=== PATIENT | female | born 1950 | race Caucasian/White ===

== ENCOUNTER 2016-08-16 08:26 | Emergency (ER) | payer OTHER ==
[~2016-08-16] VITALS: Ht 154.9 cm; Wt 80.0 kg
[2016-08-16 08:30] VITALS: BP 140/77; PULSE 84; RESP 24; O2SAT 98
[2016-08-16 09:35] LABS: BASOPHILS % (AUTO) 0.2 % (0-3); EOSINOPHILS % (AUTO) 1.1 % (0-5); Mean Corpuscular Volume 86.8 fL (81-100); NEUTROPHILS % (AUTO) 61.2 % (40-74); Platelet Count 440 bil/L (150-400)
--- NOTE | 2016-08-16 10:22 | ED.REPORT ---
HPI-Abd Pain F 40 and Over Date of Service Aug 16, 2016 ED Provider: Gunnar Roldan DO Patient is a 66 year old female who presents to the ED after being referred by urgent care complaining of a kidney stone. Her pain has been getting increasingly worse despite taking her prescribed medications. Associated symptoms include back pain, abdominal pain, vomiting, and diarrhea. She denies fever, chills, or any other symptoms. She took hydrocodone 2 hours prior to arrival. Nursing Notes Stated Complaint: POSSIBLE KIDNEY STONES Chief Complaint: Female Abdominal Pain Nursing Notes Reviewed: Yes Allergies: Coded Allergies: cefaclor (Verified Allergy, Unknown, 08/16/16) morphine (Verified Allergy, Unknown, 08/16/16) Scheduled PRN Hydrocodone-Acetaminophen 5-325 mg (Hydrocodone-Acetaminophen 5-325 mg) 1 Each Tablet 1-2 TABLET PO QID PRN PRN For Pain General Time Seen by MD: 10:20 Chief Complaint Abdominal pain Hx Obtained From: Patient Arrived By: Walk-in Sudden in Onset?: Yes Onset Occurred: Onset unknown Recent Healthcare: Recent doctor visit Risk Factors )( AAA Risk Stratification No Hypertension, No Smoking Risk factors reviewed Past Medical History Past Medical History Arthritis Hypothyroid Denies: Diabetes mellitus, Hyperlipidemia, Hypertension Reports: Depression Past Surgical History foot Reports: Cholecystectomy, Tonsillectomy Smoking History Never Smoker Social History Alcohol Use: Denies alcohol use Ambulatory Status Independent Review of Systems Constitutional: Denies: Chills, Fever GI: Reports: Abdominal pain, Vomiting Musculoskeletal: Reports: Back pain Complete sys rev & neg: except as marked. Physical Exam Vital Signs Vital Signs (First) Date Time Temp Pulse Resp B/P Pulse Ox O2 Delivery O2 Flow Rate FiO2 08/16/16 08:30 36.4 84 24 140/77 98 Room Air Initial VS: Reviewed Head / Eyes: Atraumatic, Normocephalic Skin: Warm, Dry Neurologic: Alert, Oriented, Nonfocal Psychiatric: Mood/affect normal, Behavior normal, Normal thought content General/Constitutional: Awake, Alert, Well developed Distress / Hydration: Positive: Distress moderate Respiratory / Chest: No respiratory distress Cardiovascular: Peripheral circulation NL 2+ posterior tibial pulses Tenderness/Guarding/Rebound: Positive: Tender RLQ... Back: Atraumatic Interpretation & Diagnostics Lab Results Interpretation Result Diagram: 08/16/16 0920 08/16/16919 Test 08/16/16:20 08/16/16 10:29 08/16/16 10:48 08/16/16 12:38 White Blood Count 12.8th/mm3 (3.8-10.1) Red Blood Count 4.24mil/mm3 (3.90-5.20) Hemoglobin 12.3g/dL (12.0-15.6) Hematocrit 36.8% (35.0-46.0) Mean Corpuscular Volume 86.8fL (81-100) Mean Corpuscular Hemoglobin 29.0pg (27.0-35.0) Mean Corpuscular Hemoglobin Concent 33.4% (32.0-37.0) Red Cell Distribution Width 12.7% (12.3-15.4) Platelet Count 440bil/L (150-400) Neutrophils (%) (Auto) 61.2% (40-74) Lymphocytes (%) (Auto) 24.3% (14-46) Monocytes (%) (Auto) 13.0% (4-12) Eosinophils (%) (Auto) 1.1% (0-5) Basophils (%) (Auto) 0.2% (0-3) Sodium Level 135mEq/L (134-144) Potassium Level 4.6mEq/L (3.5-5.2) Chloride Level 96mEq/L (97-108) Carbon Dioxide Level 24mmol/L (18-29) Blood Urea Nitrogen 9mg/dL (8-27) Creatinine 0.77mg/dL (0.57-1.00) Estimat Glomerular Filtration Rate 108mL/min (>59) Glucose Level 101mg/dL (60-99) Calcium Level 9.1mg/dL (8.5-10.1) Total Bilirubin 0.4mg/dL (0.0-1.2) Aspartate Amino Transf (AST/SGOT) 32U/L (0-50) Alanine Aminotransferase (ALT/SGPT) 23U/L (0-32) Alkaline Phosphatase 101U/L (25-165) Total Protein 7.5g/dL (6.4-8.4) Albumin 4.3g/dL (3.4-5.0) Magnesium Level 2.0mg/dL (1.6-2.6) Lipase 53U/L (13-60) Lactic Acid Level 2.0mmol/L (0.4-2.0) Urine Color Straw (YELLOW) Urine Appearance Clear (CLEAR,HAZY) Urine pH 6.0 (5.0-8.0) Urine Specific [place] 1.005 (1.003-1.035) Urine Protein Negativemg/dL (NEG,TRACE) Urine Glucose (UA) Negativemg/dL (NEGATIVE) Urine Ketones Negativemg/dL (NEGATIVE) Urine Occult Blood Negative (NEGATIVE) Urine Nitrite Negative (NEGATIVE) Urine Bilirubin Negative (NEGATIVE) Urine Urobilinogen Normalmg/dL (NORMAL) Urine Leukocyte Esterase Trace (NEGATIVE) Urine RBC 0-2/hpf (0-2) Urine WBC 0-5/hpf (0-5) Urine Epithelial Cells Occasional/hpf (NONE-MOD) Urine Crystals None seen (NONE SEEN) Urine Bacteria None/hpf (NONE-FEW) Urine Hyaline Casts None/lpf (NONE) Urine Granular Casts None seen (NONE SEEN) Urine Waxy Casts None seen (NONE SEEN) Urine Red Blood Cell Casts None seen (NONE SEEN) Urine White Blood Cell Casts None seen (NONE SEEN) Urine Mucus None seen (None Seen) Urine Trichomonas None seen (NONE SEEN) Urine Yeast None (NONE SEEN) Urinalysis Comment None Urine Culture Reflexed Indicated CT Abd / Pelvis Interpretation IMPRESSION: 1. No acute disease process. 2. Small hiatal hernia. 3. Hepatic steatosis. 4. Atherosclerosis. 5. The appendix is normal. 6. No free fluid or air. 7. No dilated loops of bowel. 8. Status post cholecystectomy. Dictated by: Lauren Toribio MD, PhD on 08/16/2016 at 12:51 Approved by: Lauren Toribio MD, PhD on 08/16/2016 at 12:51 Study type: Abdominal CT IV contrast Interpretation / Wet Read by: Interpret - Radiologist Re-Eval/Medical Decision Med Decision/Clinical Course Nonspecific abdominal pain. CAT scan unremarkable, urinalysis and other laboratory studies do not point to a kidney stone. Patient is feeling much better and is agreeable to discharge. return and follow-up precautions given Re-Evaluation/Progress : Time of Eval: 13:23 Re-Evaluation/Progress Note: Discussed imaging results and plan for discharge. Patient understands and agrees with plan. All questions addressed at this time. Counseled Regarding: Diagnosis, Lab results, Need for follow-up, When/why to return to ED Discharge & Departure Primary Impression: Pain, abdominal, nonspecific Disposition: Home Discharge Condition All VS Reviewed: Yes Condition: Stable Patient Instructions: Acute Abdominal Pain (ED) Additional Instructions: Thank you for coming to the ER today. We are so sorry that you are having trouble with your abdomen and pain. Overall there is no obvious cause for your pain. Additionally there is no life- threatening cause for your pain that we can identify. Use naproxen and hydrocodone as prescribed for pain. Call your doctor in the morning for close follow-up appointment. Return to ER as needed for severe intractable pain, persistent vomiting, high fever, or other concerns. Referrals: Rachel De Santiago (PCP) Scribe Attestation Portions of this note were transcribed by Yenni Vega. I, Dr. Roldan personally performed the history, physical exam and medical decision-making; I reviewed and confirmed the accuracy of the information in the transcribed note. Signed by: Yenni Vega 08/16/16, 1328 copies to: Rachel De Santiago Timothy S DO Aug 16, 2016 10:22 YENNI VEGA Aug 16, 2016 10:31
[2016-08-16] MEDS ORDERED: 0.9% Sodium Chloride 1,000 ML IV ONE (10:29)
[2016-08-16] MEDS ORDERED: Ketorolac 15 mg/mL Inj IVPUSH ONE (10:30)
[2016-08-16] MEDS ORDERED: Ondansetron 2 mg/mL 2 mL Inj IVPUSH PRN (10:30)
--- NOTE | 2016-08-16 12:52 | DRSVH ---
PROCEDURE: CT ABDOMEN AND PELVIS WITH CONTRAST ([id number]) INDICATIONS: RLQ abd pain TECHNIQUE: After the administration of intravenous contrast, 5 mm thick sections acquired from the diaphragm to the symphysis. 5 mm coronal and sagittal reformats were acquired. For radiation dose reduction, the following was used: automated exposure control, adjustment of mA and/or kV according to patient siz e. COMPARISON: None. FINDINGS: Image quality: Excellent. ABDOMEN: Lung bases: Lung bases are clear. Heart size is normal. Solid organs: Liver and spleen are normal in size and enhancement. Diffuse fatty infiltration of the liver. Gallbladder is surgically absent. Biliary system is non dilated. Pancreas enhances normally . No adrenal nodules. Kidneys demonstrate normal size and enhancement, without hydronephrosis. Peritoneum and bowel: Small hiatal hernia is noted. Bowel loops demonstrate normal wall thickness an d caliber. No free fluid or air. The appendix is normal. Nodes and vessels: No retroperitoneal or mesenteric adenopathy by size criteria. Aorta and inferior vena cava are normal in size. Scattered atherosclerotic calcifications are noted in the abdominal an d pelvic vasculature. Miscellaneous: No ventral hernias. PELVIS: Genitourinary: Bladder wall thickness is normal. Miscellaneous: No inguinal hernias or adenopathy. Bones: No suspicious bony lesions. No vertebral body compression fractures. IMPRESSION: 1. No acute disease process. 2. Small hiatal hernia. 3. Hepatic steatosis. 4. Atherosclerosis. 5. The appendix is normal. 6. No free fluid or air. 7. No dilated loops of bowel. 8. Status post cholecystectomy. Dictated by: Lauren Toribio MD, PhD on 08/16/2016 at 12:51 Approved by: Lauren Toribio MD, PhD on 08/16/2016 at 12:51
[2016-08-16 13:06] LABS: APPEARANCE,URINE CLEAR (CLEAR,HAZY); COLOR,URINE STRAW (YELLOW); OCCULT BLOOD,URINE NEGATIVE (NEGATIVE); UROBILINOGEN,URINE NORMAL (NORMAL)
[2016-08-16] MEDS ORDERED: HYDR-4003 PO (13:25)
[2016-08-16 13:37] VITALS: BP 115/68; PULSE 64; RESP 20; O2SAT 96
== END 2016-08-16 13:37 | disposition home or self-care (01) ==
LOC: SED 08:26
DX: R10.31 Right lower quadrant pain (principal); M54.9 Dorsalgia, unspecified; R11.10 Vomiting, unspecified; R19.7 Diarrhea, unspecified; E03.9 Hypothyroidism, unspecified; Z90.49 Acquired absence of other specified parts of digestive tract; Z88.1 Allergy status to other antibiotic agents; Z88.5 Allergy status to narcotic agent
CPT/HCPCS: 36415; 74177; 80053; 81000; 83605; 83690; 83735; 85025; 87086; 96361; 96374; 96375; 99285; J1885; J2405; J7030; Q9967